=== PATIENT | male | born 1950 | race Caucasian/White ===

== ENCOUNTER → 2017-06-29 | Outpatient (CLI) | payer OTHER, MEDICAID ==
--- NOTE | 2017-06-29 13:45 | RAD ---
Examination: Chest, PA and lateral views History: Preop index finger Findings: Normal heart size, lungs clear of active disease. Minimal fibrotic scarring suggested in th e left lung. No evidence for active pneumonia, adenopathy or pleural fluid. Impression: No acute disease. Reported By:
[2017-06-29 14:10] LABS: BILIRUBIN,URINE NEGATIVE (NEGATIVE); BLOOD/HEMOGLOBIN,URINE NEGATIVE (NEGATIVE); GLUCOSE, URINE NEGATIVE (NEGATIVE); KETONES,URINE NEGATIVE (NEGATIVE); LEUKOCYTE ESTERASE ,URINE NEGATIVE (NEGATIVE); NITRITES,URINE NEGATIVE (NEGATIVE); PROTEIN,URINE NEGATIVE (NEGATIVE); UROBILINOGEN,URINE NORMAL (NORMAL)
[2017-06-29 14:10] LABS: BASOPHILS # (AUTO) 0.1 X10^3/uL (0.0-0.1); BASOPHILS % (AUTO) 1.2 % (0.2-1.0); EOSINOPHILS # (AUTO) 0.2 x10^3/uL (0.0-0.2); EOSINOPHILS % (AUTO) 3.3 % (0.9-2.9); HEMATOCRIT 46.2 % (42.0-54.0); LYMPHOCYTES # (AUTO) 2.1 X10^3/uL (1.3-2.9); LYMPHOCYTES % (AUTO) 34.2 % (21.0-51.0); MEAN CORPUSCULAR HEMOGLOBIN 31.9 pg (27.0-34.0); MEAN CORPUSCULAR HGB CONC 34.7 g/dL (33.0-35.0); MEAN CORPUSCULAR VOLUME 91.9 fL (80.0-100.0); MEAN PLATELET VOLUME 8.1 fL (7.4-11.0); MONOCYTES # (AUTO) 0.6 x10^3/uL (0.3-0.8); MONOCYTES % (AUTO) 9.8 % (0.0-13.0); NEUTROPHILS # (AUTO) 3.2 x10^3/uL (2.2-4.8); NEUTROPHILS % (AUTO) 51.5 % (42.0-75.0); PLATELET COUNT 195 X10^3/uL (150.0-450.0); RED BLOOD COUNT 5.02 X10^6/uL (4.7-6.0); RED CELL DISTRIBUTION WIDTH 12.9 % (11.6-16.5); WHITE BLOOD COUNT 6.2 X10^3/uL (3.6-10.0)
[2017-06-29 14:19] LABS: ALANINE AMINOTRANSFERASE 23 Units/L (12-78); ALBUMIN 3.8 g/dL (3.4-5.0); ALKALINE PHOSPHATASE 47 Units/L (46-116); ASPARTATE AMINO TRANSFERASE 20 Units/L (15-37); BLOOD UREA NITROGEN 11 mg/dL (7-18); CALCIUM 8.9 mg/dL (8.5-10.1); CARBON DIOXIDE 30.4 mmol/L (21-32); CHLORIDE 102 mmol/L (98-107); CREATININE 0.93 mg/dL (0.70-1.30); SODIUM 137 mmol/L (136-145); eGFR BLACK RACES > 60 (>60); eGFR NON BLACK RACES > 60 (>60)
[2017-06-29 14:25] LABS: APPEARANCE,URINE CLEAR (CLEAR); BACTERIA,URINE NEGATIVE /HPF (NEGATIVE); COLOR,URINE YELLOW (YELLOW); RBC,URINE NEGATIVE /HPF (NEGATIVE); SQUAMOUS EPITHELIAL CELL,UR RARE /HPF (NEGATIVE)
[2017-06-29 14:51] LABS: ERYTHROCYTE SEDIMENTATION RATE 2 MM/HOUR (0-15)
== END ==
LOC: LAB 13:04
PROVIDERS: ATTEND Orthopaedic Surgery
DX: Z01.818 Encounter for other preprocedural examination (principal); Z79.899 Other long term (current) drug therapy; Z11.8 Encounter for screening for other infectious and parasitic diseases; Z01.811 Encounter for preprocedural respiratory examination; Z01.810 Encounter for preprocedural cardiovascular examination; M67.442 Ganglion, left hand
CPT/HCPCS: 36415; 71020; 80053; 81001; 85025; 85652; 86140; 87640; 87641; 93005; 93010

== ENCOUNTER 2017-07-05 07:31 | Day surgery (SDC) | payer OTHER, MEDICAID ==
[2017-07-05] MEDS ORDERED: ANCEF VIAL 1 GM ONE (07:34)
[2017-07-05] MEDS ORDERED: NS 100 ML IV 100 ML IV ONE (07:34)
[2017-07-05] MEDS ORDERED: D5 LR 1000 ML 1,000 ML IV ONE (07:34)
[2017-07-05] MEDS ORDERED: FENTANYL INJ 100 mcg ONE (08:14)
[2017-07-05] MEDS ORDERED: NAROPIN 0.75% EPI ONE (08:20)
[2017-07-05] MEDS ORDERED: KETALAR ONE (08:44)
[2017-07-05] MEDS ORDERED: BACTROBAN OINT ONE (09:11)
[2017-07-05] MEDS ORDERED: BACITRACIN VIAL ONE (09:12)
[2017-07-05] MEDS ORDERED: NS IRRIGATION 1000 ML 1,000 ML with BACITRACIN VIAL 50,000 UNT IR ONE ×2 (09:17)
[2017-07-05] MEDS ORDERED: ZOFRAN INJ 4 MG VIAL IVP PRN (10:49)
[2017-07-05] MEDS ORDERED: PERCOCET TAB 5/325 MG PO PRN (10:49)
[2017-07-05] MEDS ORDERED: BENADRYL INJ 50 MG VIAL ONE (10:56)
[2017-07-05] MEDS ORDERED: SOLU-Medrol 125 MG VIAL ONE (10:57)
[2017-07-05 11:19] VITALS: BP 165/92
[2017-07-05] MEDS ORDERED: DIPRIVAN VIAL ONE (15:45)
[2017-07-05] MEDS ORDERED: VERSED ONE (15:45)
[2017-07-05] MEDS ORDERED: XYLOCAINE 2 % (PLAIN) ONE (15:45)
--- NOTE | 2017-07-06 14:15 | OR.GENERIC ---
Post-Op Note Generic - Post-Op Note Operative Report: preoperative znsawkige-aefb-ipdv index finger ganglion cyst. postoperative diagnosis-LEFT hand index finger ganglion cyst Lkxadpqkf-glks-crfd index finger ganglion cyst excision. Indication-patient 66-year-old male has been dealing with her LEFT hand index finger swelling for many years to a decade ago. He recently has been noticing excessive pain and increase in size off the swelling. Further investigation showed that it was a ganglion cyst arising from the flexor tendon of the LEFT hand index finger. Patient had the swelling which extended from volar to dorsal aspect of the proximal phalanx. Treatment discussions were done with him. Patient wanted to proceed with an excision. The patient was taken through the posterolateral fixation and biopsy. Pre-and postop surgery instructions were discussed with him. Complications including but not limited to infection, neurovascular damage, numbness of the finger, need for amputation , gangrene of the finger, stiffness and prolonged pain, need for further procedures were discussed with him in detail. He understood and verbalized same. Procedure-patient is seen in the preoperative holding area. Limb was marked. Patient got a regional block. Patient got the appropriate antibiotic. Patient was brought to the operating room and placed supine on the operative table. Patient was placed under light IV sedation. Tourniquet around the LEFT upper lip applied after sufficient padding but was not inflated. LEFT upper limb prepped and draped. After exsanguination with Esmarch tourniquet inflated. Patient had a swelling which extended to the volar to dorsal. So at curve S shaped incision was placed in starting dorsally distally and proximally volarly. Dissection carried down to expose the swelling. Hourglass constriction noted on the lateral aspect. The neurovascular bundle was found to be intact and underneath the swelling. The swelling had main fragment and the 2 smaller offshoots. Most of the swelling was cystic withcheesy Material. No signs of malignancy-like operations bony involvement or irregular borders were noted. The main swelling measured about 3 cm into 1 into 1 cm. The other 2 offshoots swellings. About 1 into 1 into 1 cm. . the swelling seemed to have alternated from the flexor tendons of the LEFT hand index finger. the neurovascular bundle was found to be intact after the swelling was excised. Tourniquet was deflated at this time. Hemostasis maintained. No major bleeding noted. Pulsations from the intactneurovascular bundle noted. Distal capillary refill excellent. Wound closed in layers with Vicryl and 20 and [id number]. Sterile dressing applied. the specimen was sent to pathology. Total tourniquet time was 30 minutes. Patient was woken up from surgery. Patient's vitals were stable and was shifted to the PACU. Examination of the limb was done after the procedure. Capillary refill is excellent. Neurological status could not be examined because he had a block. Patient was sent home with instructions to keep dressing clean and dry. instructions for follow-up were given. The findings were discussed with the family.
== END 2017-07-05 11:43 | disposition home or self-care (01) | DRG 514 ==
LOC: SURG1 07:31
PROVIDERS: ATTEND Orthopaedic Surgery
PROC: 0LB80ZZ Excision of Left Hand Tendon, Open Approach (ICD-10-PCS; principal; 2017-07-05 08:30)
DX: M67.442 Ganglion, left hand (principal)
CPT/HCPCS: A4222; J0690; J1200; J2001; J2250; J2930; J3010; J3490; J7120

== ENCOUNTER → 2017-09-12 | Outpatient (CLI) | payer OTHER, MEDICAID ==
--- NOTE | 2017-09-12 16:10 | RAD ---
HISTORY: Knot on left index finger Study: 3 views of the left hand. Comparison: None Findings: No acute fractures or dislocations. The carpal bones appear well aligned. The visualized portions of the distal radius and ulna are unremarkable. Diffuse interphalangeal joint space loss with osteophy tosis. No erosion. No significant soft tissue abnormality. IMPRESSION: 1. Osteoarthritis of the left hand. No significant bony lesion to explain findings of knot on index finger. Reported By:
== END ==
LOC: RAD 09:20
PROVIDERS: ATTEND Orthopaedic Surgery
DX: R22.32 Localized swelling, mass and lump, left upper limb (principal); M19.042 Primary osteoarthritis, left hand
CPT/HCPCS: 73130